=== PATIENT | female | born 1995 | race Caucasian/White ===

== ENCOUNTER 2021-09-09 05:32 | Outpatient (CLI) | payer BC ==
[~2021-09-09] VITALS: Ht 158 cm; Wt 65.0 kg
[2021-09-09] MEDS ORDERED: FAMO-119 PO (10:37)
[2021-09-09] MEDS ORDERED: HYDR-3584 PO (10:37)
[2021-09-09] MEDS ORDERED: DULO30CA49 PO (10:37)
[2021-09-09] MEDS ORDERED: ALPR0.25 PO (10:37)
== END 2021-09-09 10:49 | disposition home or self-care (01) ==
LOC: PREOP 05:32
PROVIDERS: ATTEND Otolaryngology Otolaryngology/Facial Plastic Surgery
DX: Z01.818 Encounter for other preprocedural examination (principal)

== ENCOUNTER 2021-09-16 06:04 | Day surgery (SDC) | payer BC ==
[2021-09-16] VITALS (11 sets, daily range): BP systolic 123–140; BP diastolic 88–99
[~2021-09-16 06:04] MED LIST: ALPR0.25 PO; DULO30CA49 PO; FAMO-119 PO; HYDR-3584 PO
[2021-09-16] MEDS ORDERED: WATER (STERILE) FOR INJECTION 20 ML ONE (06:53)
[2021-09-16] MEDS ORDERED: LIDOCAINE/EPI 2% 1:100,00 (XYLOCAINE) 20 ML VIAL ONE (06:53)
[2021-09-16] MEDS ORDERED: BSS 15 ML ONE (06:54)
[2021-09-16] MEDS ORDERED: PHENYLEPHRINE 0.5% NASAL SPR (NEO-SYNEPHRINE) REG ONE (06:54)
[2021-09-16] MEDS ORDERED: COCAINE HCL 4% 2 ML SYR ONE (06:54)
[2021-09-16] MEDS ORDERED: ROCURONIUM 50 MG/5 ML (ZEMURON) VIAL IV ONE (06:59)
[2021-09-16] MEDS ORDERED: ONDANSETRON 4 MG/2 ML (SDV) Z0FRAN ONE (06:59)
[2021-09-16] MEDS ORDERED: fentaNYL INJ 100 MCG/2 ML AMP ONE ×2 (06:59→08:19)
[2021-09-16] MEDS ORDERED: proPOfol 200 MG/20 ML (DIPRIVAN) VIAL IV ONE (06:59)
[2021-09-16] MEDS ORDERED: MIDAZOLAM 2 MG/2 ML (VERSED) VIAL ONE (06:59)
[2021-09-16] MEDS ORDERED: LIDOCAINE PF 2% 5 ML (XYLOCAINE) VIAL ONE (06:59)
[2021-09-16] MEDS ORDERED: AMPICILL/SULB 1.5 GM VIAL (UNASYN) ONE (07:09)
[2021-09-16] MEDS ORDERED: HYDROCORTISONE 100 MG/2 ML (Solu-CORTEF) VIAL ONE (07:09)
[2021-09-16] MEDS ORDERED: NS (IVPB) 50 ML ONE (07:09)
--- NOTE | 2021-09-16 07:12 | Progress Note-Pre Operative ---
Pre-Operative Progress Note H&P Reviewed The H&P was reviewed, patient examined and no changes noted. Date Seen by Provider: Sep 16, 2021 Time Seen by Provider: : Date H&P Reviewed: Sep 16, 2021 Time H&P Reviewed: : Pre-Operative Diagnosis: Bilateral Chronic Sinsuitis, dev septim, bilat hyper of INf turbs ALEXUS JESSICA MD Sep 16, 2021 07:12
[2021-09-16] MEDS ORDERED: NS IV 500 ML 500 ML ONE (07:14)
[2021-09-16] MEDS: LACTATED RINGERS 1,000 ML IV PRN ×2 (07:15→08:20)
[2021-09-16] MEDS ORDERED: LIDOCAINE/EPI 1%-1:100,000 (XYLOCAINE) 20ML ONE (07:21)
[2021-09-16] MEDS ORDERED: AMPICILLIN/SULBACTAM INJECTION 1.5 GM in NS (IVPB) 100 ML IV ONE (07:30)
[2021-09-16] MEDS ORDERED: HYDROCORTISONE 100 MG/2 ML (Solu-CORTEF) VIAL IV ONE (07:30)
[2021-09-16] MEDS ORDERED: SEVOFLURANE (ULTANE) 15 ML INHAL SOLN ONE (08:47)
--- NOTE | 2021-09-16 08:49 | Progress Note-Post Operative ---
Post-Operative Progess Note Surgeon (s)/Airport Driver (s) Surgeon ALEXUS JESSICA MD Airport Driver n/a Pre-Operative Diagnosis Bilateral Chronic Sinsuitis, dev septim, bilat hyper of INf turbs Post-Operative Diagnosis same Post-Op Procedure Note Date of Procedure: Sep 16, 2021 Name of Procedure Performed: Bilat ESS, Nasal Septoplasty, Bilat REd of Inf Turbs Description & Findings Description and Findings: n/a Anesthesia Type get Estimated Blood Loss minimal Packing dissolvable nasal packing bilat. Specimen(s) collected/removed bilat chornic sinus disease ALEXUS JESSICA MD Sep 16, 2021 08:49
[2021-09-16] MEDS ORDERED: MEPERIDINE (DEMEROL) INJ 50 MG/ML IVP ONE (09:00)
[2021-09-16] MEDS ORDERED: HYDROmorphone 2 MG/ML VIAL (DILAUDID) IV ONE (09:00)
[2021-09-16] MEDS ORDERED: HYDROcodone/APAP 5 MG/325 MG (LORTAB) TAB PO PRN (09:00)
[2021-09-16] MEDS ORDERED: morphine INJ 10 MG/ML 1ML (SYR OR VIAL) IVP ONE (09:00)
[2021-09-16] MEDS ORDERED: ONDANSETRON 4 MG/2 ML (SDV) Z0FRAN IVP PRN (09:00)
[2021-09-16] MEDS ORDERED: predniSONE 20 MG TAB PO ONE (09:00)
[2021-09-16] MEDS ORDERED: HYDROmorphone 2 MG/ML VIAL (DILAUDID) ONE (09:00)
[2021-09-16] MEDS ORDERED: D5 1/2 NS W/KCL 20 MEQ/L 1,000 ML IV SCH (09:00)
[2021-09-16] MEDS ORDERED: PROMETHAZINE INJ 25 MG/ML (PHENERGAN) AMP IVP ONE (09:00)
[2021-09-16] MEDS ORDERED: PROMETHAZINE INJ 25 MG/ML (PHENERGAN) AMP IVP PRN (09:00)
--- NOTE | 2021-09-16 09:27 | Anesthesia-General Post-Op ---
General Patient Condition Mental Status/LOC: Same as Preop Cardiovascular: Satisfactory Nausea/Vomiting: Absent Respiratory: Satisfactory Pain: Controlled Complications: Absent Post Op Complications Complications None Follow Up Care/Instructions Patient Instructions None needed. Anesthesia/Patient Condition Patient Condition Patient is doing well, no complaints, stable vital signs, no apparent adverse anesthesia problems. No complications reported per nursing. TASHA HINES CRNA Sep 16, 2021 09:27
[2021-09-16] MEDS ORDERED: AMOX-355 PO (10:10)
[2021-09-16] MEDS ORDERED: PRD20T PO (10:10)
[2021-09-16] MEDS ORDERED: ACHD5005 PO (10:10)
[2021-09-16] MEDS ORDERED: HYDROcodone/APAP 5 MG/325 MG (LORTAB) TAB ONE (10:27)
== END 2021-09-16 11:55 ==
LOC: SDC 06:04
PROVIDERS: ATTEND Otolaryngology Otolaryngology/Facial Plastic Surgery
DX: J32.8 Other chronic sinusitis (principal); J34.2 Deviated nasal septum; J34.89 Other specified disorders of nose and nasal sinuses; J34.3 Hypertrophy of nasal turbinates
CPT/HCPCS: 84703; 87081